=== PATIENT | male | born 1995 ===

== ENCOUNTER 2022-04-13 06:12 | Day surgery (SDC) | payer OTHER ==
[2022-04-13] MEDS ORDERED: PERCOCET 7.5-31 EACH PO (11:27)
[2022-04-13] MEDS ORDERED: IBU800 MG PO (11:27)
[2022-04-13] MEDS ORDERED: PERCOCET 5-3251 EACH PO (15:16)
== END 2022-04-13 13:45 | disposition home or self-care (01) ==
LOC: CIR.AMB 06:12
PROVIDERS: ATTEND Otolaryngology Otology & Neurotology
DX: J34.3 Hypertrophy of nasal turbinates (principal); G47.33 Obstructive sleep apnea (adult) (pediatric); Z20.822 Contact with and (suspected) exposure to COVID-19; Z91.013 Allergy to seafood; E78.00 Pure hypercholesterolemia, unspecified

== ENCOUNTER 2022-04-19 18:10 | Inpatient (IN) | payer OTHER ==
[~2022-04-19] VITALS: Ht 180.3 cm; Wt 110.2 kg
[~2022-04-19 18:10] MED LIST: IBU800 MG PO; PERCOCET 5-3251 EACH PO; PERCOCET 7.5-31 EACH PO
--- NOTE | 2022-04-19 18:24 | NUR ---
SE RECIBE PTE ALERTA Y OORIENTADO X3 EL CUAL REFIERE VENIR POR SANGRADO EN BOCA SE MIDEN S/V APTE Y SE COLOCA EN PASILLO.
[2022-04-20] MEDS ORDERED: ULTRACET PO (12:05)
== END 2022-04-20 13:43 | disposition home or self-care (01) | DRG 909 ==
LOC: ER 18:10 → SEC-K 18:31 → SURG 18:31
PROVIDERS: ADMIT Otolaryngology Otology & Neurotology; ATTEND Otolaryngology Otology & Neurotology
PROC: 0W337ZZ Control Bleeding in Oral Cavity and Throat, Via Natural or Artificial Opening (ICD-10-PCS; principal; 2022-04-19 19:00)
DX: J95.830 Postprocedural hemorrhage of a respiratory system organ or structure following a respiratory system procedure (principal); Z20.822 Contact with and (suspected) exposure to COVID-19